=== PATIENT | male | born 1955 | race Two or more races ===

== ENCOUNTER 2023-07-26 18:01 | Inpatient (IN) | payer OTHER ==
[2023-07-26 19:07] VITALS: BMI 28.7
[2023-07-26] MEDS ORDERED: NALOXONE HCL 0.4 MG/ML VIAL IM PRN (21:46)
[2023-07-26] MEDS ORDERED: NALOXONE HCL (KLOXXADO) 8 MG SPRAY NS PRN (21:46)
[2023-07-26] MEDS ORDERED: MAG HYDROX/AL HYDROX/SIMETH 30 ML UNIT-DOSE CUP PO PRN (21:46)
[2023-07-26] MEDS ORDERED: BENZONATATE 200 MG CAPSULE PO PRN (21:46)
[2023-07-26] MEDS ORDERED: guaiFENesin 600 MG TABLET.ER (FP) PO PRN (21:46)
[2023-07-26] MEDS ORDERED: MAGNESIUM HYDROX 2400MG/30ML ORAL SUSPENSION 30 ML CUP PO PRN (21:46)
[2023-07-26] MEDS ORDERED: P-EPHED 60MG/TRIPROLIDI 2.5MG TABLET PO PRN (21:46)
[2023-07-26] MEDS ORDERED: ACETAMINOPHEN 325 MG TABLET (FP) PO PRN (21:46)
[2023-07-26] MEDS ORDERED: POLYETHYLENE GLYCOL (HEALTHYLAX) 3350 17 GM PACKET PO PRN (21:46)
[2023-07-26] MEDS ORDERED: ONDANSETRON *ODT* 4 MG TABLET SL PRN (21:46)
[2023-07-26] MEDS ORDERED: BENZOCAINE/MENTHOL (CHLORASEPTIC ) LOZENGE MM PRN (21:46)
[2023-07-26] MEDS ORDERED: BISMUTH SUBSALICYLATE 524 MG/30 ML PO PRN (21:46)
[2023-07-26] MEDS ORDERED: IBUPROFEN 600 MG TABLET (FP) PO PRN (21:46)
[2023-07-26] MEDS: THIAMINE 100 MG TABLET PO SCH (23:20)
[2023-07-26] MEDS: MELATONIN 5 MG TABLETS PO SCH (23:20)
[2023-07-26] MEDS: cloNIDine HCL 0.1 MG TABLET PO ONE (23:43)
[2023-07-27] MEDS ORDERED: LORazepam 1 MG TABLET PO PRN (08:33)
[2023-07-27] MEDS ORDERED: methaDONE HCL 10 MG TABLET PO SCH (08:45)
[2023-07-27] MEDS: methaDONE 80 MG, methaDONE 20 MG PO ONE ×2 (10:35→10:50)
[2023-07-27] MEDS: PRENATAL VITAMINS W/ FOLIC ACID TABLET (FP) PO SCH (10:46)
[2023-07-27] MEDS: amLODIPine BESYLATE 10 MG TABLET (FP) PO SCH (10:46)
[2023-07-27] MEDS ORDERED: LORazepam 2 MG TABLET PO SCH (11:00)
[2023-07-27] MEDS: LORazepam 1 MG TABLET PO SCH (11:17)
[2023-07-27 11:51] LABS: CHLORIDE 103 mmol/L (98-107); HEMATOCRIT 34.2 % (35.4-49); HEMOGLOBIN 11.2 GM/dL (11.7-16.9); MCH 30.7 pg (25.7-33.7); MCHC 32.7 g/dl (32.0-35.9); MEAN CELL VOLUME 93.9 fl (80-96); MEAN PLT VOLUME 9.7 fl (7.5-11.1); PLATELET COUNT 175 10^3/uL (134-434); POTASSIUM 3.5 mmol/L (3.5-5.1); RBC 3.64 M/mm3 (4.00-5.60); RDW 14.1 % (11.9-15.9); SODIUM 136 mmol/L (136-145); WHITE BLOOD COUNT 5.7 K/mm3 (4.0-10.0)
[2023-07-27 12:05] LABS: ALBUMIN 3.1 g/dl (3.4-5.0); ANION GAP 2 mmol/L (4-13); BLOOD UREA NITROGEN 12.3 mg/dL (7-18); CALCIUM 8.6 mg/dL (8.5-10.1); CO2 31 mmol/L (21-32); GLUCOSE,RANDOM 88 mg/dL (74-106)
[2023-07-27 12:09] LABS: CREATININE 0.6 mg/dL (0.55-1.3); SGOT/AST 16 U/L (15-37); SGPT/ALT 15 U/L (13-61); TOT PROT 6.2 g/dl (6.4-8.2)
[2023-07-27 12:10] LABS: BILIRUBIN,TOTAL 0.5 mg/dL (0.2-1)
[2023-07-27 12:11] LABS: ALK PHOS 117 U/L (45-117)
[2023-07-27] MEDS: MELATONIN 5 MG TABLETS PO SCH (22:27)
[2023-07-28] MEDS: methaDONE 80 MG, methaDONE 20 MG PO SCH (05:51)
[2023-07-28] MEDS ORDERED: methaDONE HCL 10 MG TABLET PO SCH (06:00)
[2023-07-29] MEDS: LORazepam 1 MG TABLET PO SCH (06:57)
[2023-07-29] MEDS: IBUPROFEN 400 MG TABLET (FP) PO PRN (06:59)
[2023-07-29] MEDS: LOPERAMIDE HCL 2 MG CAPSULE PO PRN (10:22)
[2023-07-30] MEDS ORDERED: LORazepam 0.5 MG TABLET PO PRN
[2023-07-30] MEDS: LORazepam 0.5 MG TABLET PO SCH (06:00)
[2023-07-31] MEDS: LORazepam 0.5 MG TABLET PO ONE (05:13)
[2023-08-01 05:48] VITALS: BP 124/68; PULSE 74; RESP 17; TEMP 97.6
== END 2023-08-01 08:44 | disposition home or self-care (01) | DRG 897 ==
LOC: YASAS 18:01 → Y3N 22:37
PROVIDERS: ADMIT Allergy & Immunology; ATTEND Surgery
PROC: HZ2ZZZZ Detoxification Services for Substance Abuse Treatment (ICD-10-PCS; principal; 2023-07-26)
DX: F10.230 Alcohol dependence with withdrawal, uncomplicated (principal); F11.20 Opioid dependence, uncomplicated; F33.1 Major depressive disorder, recurrent, moderate; Z59.00 Homelessness unspecified; G47.00 Insomnia, unspecified; I10 Essential (primary) hypertension; M25.561 Pain in right knee; M25.562 Pain in left knee; M54.50 Low back pain, unspecified; G89.29 Other chronic pain; Z99.89 Dependence on other enabling machines and devices; Z28.310 Unvaccinated for COVID-19; Z28.9 Immunization not carried out for unspecified reason
CPT/HCPCS: 36415; 80053; 80307; 85027; 86780